=== PATIENT | male | born 1980 | race Hispanic/Latino ===

== ENCOUNTER 2021-05-22 07:49 | Emergency (ER) | payer OTHER ==
[~2021-05-22] VITALS: Ht 167.6 cm; Wt 105.7 kg
[2021-05-22 08:30] LABS: APPEARANCE,URINE Clear (CLEAR); BILIRUBIN,URINE Negative (NEGATIVE); COLOR,URINE Yellow (YELLOW); GLUCOSE, URINE (UA) Negative (NEGATIVE); KETONES,URINE Negative (NEGATIVE); LEUKOCYTE ESTERASE ,URINE Negative (NEGATIVE); NITRATE,URINE Negative (NEGATIVE); OCCULT BLOOD,URINE Negative (NEGATIVE); PH,URINE 5.5 (5.0-8.0); PROTEIN,URINE Negative (NEGATIVE)
[2021-05-22] MEDS ORDERED: MAGNESIUM CITRATE 296 ML SOLUTION PO ONE (09:00)
[2021-05-22 09:07] VITALS: BP 146/78
== END 2021-05-22 09:08 | disposition home or self-care (01) ==
LOC: EDH 07:49
DX: K59.00 Constipation, unspecified (principal); T40.2X5A Adverse effect of other opioids, initial encounter; I10 Essential (primary) hypertension; Y92.89 Other specified places as the place of occurrence of the external cause
CPT/HCPCS: 74018; 81003

== ENCOUNTER 2021-11-12 12:24 | Emergency (ER) | payer OTHER ==
[2021-11-12] MEDS ORDERED: ACETAMINOPHEN 500 MG TABLET ONE (12:55)
[2021-11-12] MEDS ORDERED: OCTYL 2-CYANOACRYLATE 1 EACH TP SCH (13:00)
[2021-11-12] MEDS ORDERED: ACETAMINOPHEN 500 MG TABLET PO ONE (13:00)
[2021-11-12] MEDS ORDERED: BACI30OI10 TP (14:40)
[2021-11-12 14:43] VITALS: BP 164/84
== END 2021-11-12 14:43 | disposition home or self-care (01) ==
LOC: EDH 12:24
DX: S00.01XA Abrasion of scalp, initial encounter (principal); I10 Essential (primary) hypertension; W20.8XXA Other cause of strike by thrown, projected or falling object, initial encounter; Y93.89 Activity, other specified; Y92.89 Other specified places as the place of occurrence of the external cause; Y99.8 Other external cause status
CPT/HCPCS: 70450; 72125